=== PATIENT | female | born 2000 | race Caucasian/White ===

== ENCOUNTER 2018-02-05 23:00 | Emergency (ER) | payer SELFPAY ==
--- NOTE | 2018-02-06 01:06 | ER Document Report ---
ED General - General Chief Complaint: Abdominal Pain Stated Complaint: ABDOMINAL PAIN Time Seen by Provider: 02/06/18 01:04 Notes: 17-year-old female currently with positive test presenting with crampy lower abdominal pain and brown discharge for 2 days gradual onset, worsening, nausea but no vomiting. No back pain or urinary symptoms. History of chlamydia. TRAVEL OUTSIDE OF THE [place] IN LAST 30 DAYS: No - Related Data Allergies/Adverse Reactions: erythromycin base [Erythromycin Base] Allergy (Mild, Verified 02/06/18 01:41) Hives Past Medical History - Social History Smoking Status: Never Smoker Family History: None Endocrine Medical History: Denies: Hx Diabetes Mellitus Type 1 Psychiatric Medical History: Reports: Hx Depression - Immunizations Immunizations up to date: Yes Hx Diphtheria, Pertussis, Tetanus Vaccination: Yes Physical Exam - Vital signs Vitals: Temp Pulse BP Pulse Ox 98.2 F 80 139/75 H 99 02/05/18 23:27 02/05/18 23:27 02/05/18 23:27 02/05/18 23:27 Course - Re-evaluation Re-evalutation: 02/06/18 03:43 Patient presents with vague lower abdominal cramping and a positive test. Her exam is reassuring and her vitals are normal. Differential includes UTI, spontaneous , normal or ectopic. Also ovarian cyst. Patient had a urine which was normal including positive leukocyte esterase but no white cells and slight contamination, she is not , her labs are normal. Do not think she needs imaging at this time given that her pain is mild. I did test her for Chlamydia gonorrhea both of which are negative. Patient is already tolerating p.o. and asked her to follow-up with her primary care doctor as well as take a repeat test. I have discussed with the patient there likely diagnosis, aftercare plan, follow-up plans and my usual and customary return precautions. They verbalized understanding of this. - Vital Signs Vital signs: Temp Pulse Resp BP Pulse Ox 98.2 F 80 139/75 H 99 02/05/18 23:27 02/05/18 23:27 02/05/18 23:27 02/05/18 23:27 - Laboratory Result Diagrams: 02/06/18 01:36 02/06/18 01:36 Laboratory results interpreted by me: 02/06/18 02/06/18 01:35 01:36 Chloride 108 H Ur Leukocyte Esterase TRACE H Urine Ascorbic Acid 40 H Discharge - Discharge Clinical Impression: Abdominal cramping Condition: Good Disposition: HOME, SELF-CARE Instructions: Abdominal Pain ([facility]) Additional Instructions: Your test in the emergency room as well as your tests for sexually transmitted diseases were normal. The remainder of your blood testing was normal. Please take ibuprofen for your cramping and follow-up with your primary care doctor. I would like you to repeat a test in 2 or 3 days. If you become faint and dizzy or have worse pain or vomiting please return to the emergency room.
[2018-02-06 01:51] LABS: ABSOLUTE BASOPHILS # (AUTO) 0.1 10^3/uL (0.0-0.2); ABSOLUTE EOSINOPHILS # (AUTO) 0.1 10^3/uL (0.0-0.6); ABSOLUTE LYMPHOCYTES (AUTO) 3.4 10^3/uL (0.5-4.7); ABSOLUTE MONOCYTES (AUTO) 0.5 10^3/uL (0.1-1.4); ABSOLUTE NEUT (AUTO) 6.3 10^3/uL (1.7-8.2); BASOPHILS % (AUTO) 0.7 % (0-2); EOSINOPHILS % (AUTO) 0.8 % (0-6); HEMATOCRIT 38.2 % (36.0-47.0); HEMOGLOBIN 12.8 g/dL (12.0-15.5); LYMPHOCYTES % (AUTO) 32.8 % (13-45); MEAN CORPUSCULAR HEMOGLOBIN 29.7 pg (27.0-33.4); MEAN CORPUSCULAR HGB CONC 33.4 g/dL (32.0-36.0); MEAN CORPUSCULAR VOLUME 89 fl (80-97); PLATELET COUNT 256 10^3/uL (150-450); SEGMENTED NEUTROPHILS % (AUTO) 60.7 % (42-78); TOTAL CELLS COUNTED % (AUTO) 100 %; WHITE BLOOD COUNT 10.3 10^3/uL (4.0-10.5)
[2018-02-06 01:59] LABS: AMORPHOUS SEDIMENT,URINE TRACE /HPF; APPEARANCE,URINE SLIGHTLY-CLOUDY; BILIRUBIN,URINE NEGATIVE (NEGATIVE); COLOR,URINE YELLOW; GLUCOSE, URINE NEGATIVE (NEGATIVE); KETONES,URINE NEGATIVE (NEGATIVE); LEUKOCYTE ESTERASE,URINE TRACE (NEGATIVE); NITRITE,URINE NEGATIVE (NEGATIVE); PROTEIN,URINE NEGATIVE (NEGATIVE); URINE SPECIFIC GRAVITY 1.026; UROBILINOGEN,URINE NEGATIVE mg/dL (<2.0)
[2018-02-06 02:19] LABS: ANION GAP 9 (5-19); BLOOD UREA NITROGEN 9 mg/dL (7-20); CALCIUM 9.1 mg/dL (8.4-10.2); CARBON DIOXIDE 24 mmol/L (22-30); CHLORIDE 108 mmol/L (98-107); GLUCOSE 101 mg/dL (75-110); POTASSIUM 4.4 mmol/L (3.6-5.0); SODIUM 141.2 mmol/L (137-145)
[2018-02-06 03:22] LABS: CHLAM PCR NOT DETECTED (NOT DETECT); GON PCR NOT DETECTED (NOT DETECT)
[2018-02-06 03:58] VITALS: BP 115/73
== END 2018-02-06 03:58 | disposition home or self-care (01) ==
LOC: ER 23:00
DX: R10.30 Lower abdominal pain, unspecified (principal); E10.9 Type 1 diabetes mellitus without complications
CPT/HCPCS: 36415; 80048; 81001; 81025; 85025; 87491; 87591; 99284

== ENCOUNTER 2018-05-12 21:41 | Emergency (ER) | payer SELFPAY ==
[2018-05-12] MEDS ORDERED: METOCLOPRAMIDE HCL INJ/PF 10 MG/2 ML SDV IV ONE (23:33)
[2018-05-12] MEDS ORDERED: DIPHENHYDRAMINE HCL 50 MG/ML VIAL IV ONE (23:33)
[2018-05-12] MEDS ORDERED: NORMAL SALINE 1000 ML 1,000 ML IV ONE (23:34)
--- NOTE | 2018-05-13 01:02 | ER Document Report ---
ED General - General Chief Complaint: Dizziness Stated Complaint: DIZZY, WEAKNESS Time Seen by Provider: 05/12/18 23:33 Notes: Patient is a 17 year old at 17 weeks who presents with multiple complaints. The patient complains of headache, dizziness, weakness, fatigue, body pain, and confusion. Symptoms started 1 week ago and have been persistent since that time. Nothing improves or worsens her symptoms. She denies recorded fever, vaginal bleeding or vaginal discharge or dysuria. 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 She is not taking vitamins and continues to smoke. Nothing is new or different about her symptoms that prompted a visit to the emergency department tonight. TRAVEL OUTSIDE OF THE [place] IN LAST 30 DAYS: No - Related Data Allergies/Adverse Reactions: No Known Allergies Allergy (Unverified 05/12/18 21:44) Past Medical History - General Information source: Patient - Social History Smoking Status: Current Every Day Smoker Chew tobacco use (# tins/day): No Frequency of alcohol use: None Drug Abuse: None Lives with: Spouse/Significant other Family History: Reviewed & Not Pertinent Patient has suicidal ideation: No Patient has homicidal ideation: No Endocrine Medical History: Denies: Hx Diabetes Mellitus Type 1 Renal/ Medical History: Denies: Hx Peritoneal Dialysis Psychiatric Medical History: Reports: Hx Depression Past Surgical History: Reports: Hx Section - 2017 - Immunizations Immunizations up to date: Yes Hx Diphtheria, Pertussis, Tetanus Vaccination: Yes Review of Systems - Review of Systems Notes: Constitutional: Negative for fever. Positive for generalized weakness HENT: Negative for sore throat. Eyes: Negative for visual changes. Cardiovascular: Negative for chest pain. Respiratory: Negative for shortness of breath. Gastrointestinal: Negative for abdominal pain, vomiting or diarrhea. Genitourinary: Negative for dysuria. Musculoskeletal: Negative for back pain. Skin: Negative for rash. Neurological: Positive for headache 10 point ROS negative except as marked above and in HPI. Physical Exam - Vital signs Vitals: Temp Pulse Resp BP Pulse Ox 98.7 F 89 18 115/63 98 05/12/18 21:47 05/12/18 21:47 05/12/18 21:47 05/12/18 21:47 05/12/18 21:47 Interpretation: Normal Notes: PHYSICAL EXAMINATION: GENERAL: Well-appearing, well-nourished and in no acute distress. HEAD: Atraumatic, normocephalic. EYES: Pupils equal round and reactive to light, extraocular movements intact, sclera anicteric, conjunctiva are normal. ENT: nares patent, oropharynx clear without exudates. Moist mucous membranes. NECK: Normal range of motion, supple without lymphadenopathy LUNGS: Breath sounds clear to auscultation bilaterally and equal. No wheezes rales or rhonchi. HEART: Regular rate and rhythm without murmurs ABDOMEN: Soft, gravid uterus, nontender, normoactive bowel sounds. No guarding , no rebound. No masses appreciated. EXTREMITIES: Normal range of motion, no pitting or edema. No cyanosis. NEUROLOGICAL: No focal neurological deficits. Moves all extremities spontaneously and on command. PSYCH: Normal mood, normal affect. SKIN: Warm, Dry, normal turgor, no rashes or lesions noted. Course - Re-evaluation Re-evalutation: 05/13/18 00:57 Patient presents with multiple vague complaints that did not appear to be concerning for any acute life-threatening pathology. Vitals are within normal limits at triage and at time of discharge. Physical examination is unremarkable. Patient has tolerated oral intake without difficulty. Patient was not noted to be in distress at any point during their ER visit. At this time, based on the reassuring evaluation, I do not suspect an acute MD, pulmonary embolus, aortic dissection, acute intra-abdominal pathology, stroke, or sepsis. Patient has no vaginal bleeding or discharge to suggest a related pathology and has no abdominal pain. heart tones within normal limits. Will discharge with return precautions and follow-up recommendations. Verbal discharge instructions given a the bedside and opportunity for questions given. Medication warnings reviewed. Patient is in agreement with this plan and has verbalized understanding of return precautions and the need for primary care follow-up in the next 24-72 hours. - Vital Signs Vital signs: Temp Pulse Resp BP Pulse Ox 98.7 F 89 18 115/63 98 05/12/18 21:47 05/12/18 21:47 05/12/18 21:47 05/12/18 21:47 05/12/18 21:47 - Laboratory Result Diagrams: 05/13/18 00:46 05/13/18 00:46 Laboratory results interpreted by me: 05/13/18 05/13/18 05/13/18 00:37 00:46 00:46 RBC 3.33 L Hgb 10.5 L Hct 29.9 L RDW 14.6 H Potassium 3.5 L BUN 6 L Creatinine 0.42 L Alkaline Phosphatase 36 L Total Protein 5.8 L Albumin 2.9 L Urine Urobilinogen 2.0 H Ur Leukocyte Esterase MODERATE H Discharge - Discharge Clinical Impression: Multiple complaints, Generalized weakness, Second trimester Headache Qualifiers: Headache type: unspecified Headache chronicity pattern: acute headache Intractability: not intractable Qualified Code(s): R51 - Headache Condition: Good Disposition: HOME, SELF-CARE Additional Instructions: Please return to the emergency room immediately if you experience any concerning symptoms including high fevers, severe headache, chest pain, difficulty breathing, abdominal pain, slurred speech, numbness or weakness in your arms or legs, or any other symptom that concerns you. Your labs are normal today. Please establish care for your . If you drink alcohol stop. If you smoke stop. Do not use any illicit drugs while . You should be taking vitamins. Any of the generic [id number] variations will be fine. Referrals: SULY MCINTOSH MD [ACTIVE STAFF] - Follow up as needed
[2018-05-13 01:04] LABS: HEMATOCRIT 29.9 % (36.0-47.0); HEMOGLOBIN 10.5 g/dL (12.0-15.5); MEAN CORPUSCULAR HEMOGLOBIN 31.6 pg (27.0-33.4); MEAN CORPUSCULAR HGB CONC 35.1 g/dL (32.0-36.0); MEAN CORPUSCULAR VOLUME 90 fl (80-97); PLATELET COUNT 183 10^3/uL (150-450); RED BLOOD COUNT 3.33 10^6/uL (3.72-5.28); RED CELL DISTRIBUTION WIDTH 14.6 % (11.5-14.0); WHITE BLOOD COUNT 7.4 10^3/uL (4.0-10.5)
[2018-05-13 01:04] LABS: APPEARANCE,URINE SLIGHTLY-CLOUDY; BILIRUBIN,URINE NEGATIVE (NEGATIVE); COLOR,URINE YELLOW; GLUCOSE, URINE NEGATIVE (NEGATIVE); KETONES,URINE NEGATIVE (NEGATIVE); LEUKOCYTE ESTERASE,URINE MODERATE (NEGATIVE); NITRITE,URINE NEGATIVE (NEGATIVE); PROTEIN,URINE NEGATIVE (NEGATIVE); URINE SPECIFIC GRAVITY 1.018
[2018-05-13 01:13] LABS: ALANINE AMINOTRANSFERASE 14 U/L (5-35); ALBUMIN 2.9 g/dL (3.7-5.6); ALKALINE PHOSPHATASE 36 U/L (50-135); ANION GAP 11 (5-19); ASPARTATE AMINO TRANSFERASE 14 U/L (5-30); BILIRUBIN,DIRECT 0.2 mg/dL (0.0-0.4); BILIRUBIN,TOTAL 0.2 mg/dL (0.2-1.3); BLOOD UREA NITROGEN 6 mg/dL (7-20); CALCIUM 8.7 mg/dL (8.4-10.2); CARBON DIOXIDE 23 mmol/L (22-30); CHLORIDE 106 mmol/L (98-107); GLUCOSE 81 mg/dL (75-110); POTASSIUM 3.5 mmol/L (3.6-5.0); SODIUM 140.3 mmol/L (137-145); TOTAL PROTEIN 5.8 g/dL (6.3-8.2)
[2018-05-13 02:58] VITALS: BP 114/65
== END 2018-05-13 02:58 | disposition home or self-care (01) ==
LOC: ER 21:41
DX: O26.892 Other specified pregnancy related conditions, second trimester (principal); R51 Headache; R53.1 Weakness; O99.332 Smoking (tobacco) complicating pregnancy, second trimester; R42 Dizziness and giddiness; M79.1 Myalgia; R41.0 Disorientation, unspecified; Z3A.19 19 weeks gestation of pregnancy
CPT/HCPCS: 99284; 96361; 96374; 96375; 36415; 85027; 80053; 81001; J1200; J2765; J7030

== ENCOUNTER 2018-05-29 09:59 | Emergency (ER) | payer MEDICAID ==
[2018-05-29] MEDS ORDERED: ACETAMINOPHEN 325 MG TABLET PO ONE (10:15)
--- NOTE | 2018-05-29 10:19 | ER Document Report ---
ED Medical Screen (RME) - General Chief Complaint: Abdominal Pain Stated Complaint: STOMACH CRAMPING Time Seen by Provider: 05/29/18 10:13 Notes: History of complain:( obtained from----patient) 17 years old female who is 16 weeks and presents today with pelvic cramps and pelvic pain, lower back pain for the last couple of days. No vagina bleeding but mucous plug. When she was 8 week she had an episode of vaginal bleeding. Denies any fever chills or other constitutional symptoms. Been 6 times, 2 miscarriages, 5 children, one twins. TRAVEL OUTSIDE OF THE [place] IN LAST 30 DAYS: No - Related Data Allergies/Adverse Reactions: No Known Allergies Allergy (Verified 05/29/18 10:00) Past Medical History - Social History Chew tobacco use (# tins/day): No Frequency of alcohol use: None Drug Abuse: None Endocrine Medical History: Denies: Hx Diabetes Mellitus Type 1 Renal/ Medical History: Denies: Hx Peritoneal Dialysis Psychiatric Medical History: Reports: Hx Depression Past Surgical History: Reports: Hx Section - 2017 - Immunizations Immunizations up to date: Yes Hx Diphtheria, Pertussis, Tetanus Vaccination: Yes Physical Exam - Vital signs Vitals: Temp Pulse Resp BP Pulse Ox 97.8 F 82 14 115/61 99 05/29/18 10:04 05/29/18 10:04 05/29/18 10:04 05/29/18 10:04 05/29/18 10:04 Course - Vital Signs Vital signs: Temp Pulse Resp BP Pulse Ox 97.8 F 82 14 115/61 99 05/29/18 10:04 05/29/18 10:04 05/29/18 10:04 05/29/18 10:04 05/29/18 10:04
--- NOTE | 2018-05-29 10:19 | ER Document Report ---
ED GI/ - General Chief Complaint: Abdominal Pain Stated Complaint: STOMACH CRAMPING Time Seen by Provider: 05/29/18 10:13 Notes: Chief complaint: Abdominal cramps History of complain:( obtained from----patient) 17 years old female who is 16 weeks and presents today with pelvic cramps and pelvic pain, lower back pain for the last couple of days. No vagina bleeding but mucous plug. When she was 8 week she had an episode of vaginal bleeding. Denies any fever chills or other constitutional symptoms. Been 6 times, 2 miscarriages, 5 children, one twins. Onset: As above Duration: As above Severity: Mild to moderate Quality: Crampy Context: Exacerbating factor and relieving factors: None REVIEW OF SYSTEMS: CONSTITUTIONAL : Denies fever, chills, or sweats. Denies recent illness. EENT: Denies eye, ear, throat, or mouth pain or symptoms. Denies nasal or sinus congestion or discharge. Denies throat, tongue, or mouth swelling or difficulty swallowing. CARDIOVASCULAR: Denies chest pain. Denies palpitations or racing or irregular heart beat. Denies ankle edema. RESPIRATORY: Denies cough, cold, or chest congestion. Denies shortness of breath, difficulty breathing, or wheezing. GASTROINTESTINAL: Denies distention. Denies nausea, vomiting, or diarrhea. Denies blood in vomitus, stools, or per rectum. Denies black, tarry stools. Denies constipation. GENITOURINARY: Denies difficulty urinating, painful urination, burning, frequency, blood in urine, or discharge. FEMALE GENITOURINARY: Denies vaginal bleeding, heavy or abnormal periods, irregular periods. Denies vaginal discharge or odor. MUSCULOSKELETAL: Denies back or neck pain or stiffness. Denies joint pain or swelling. SKIN: Denies rash, lesions or sores. HEMATOLOGIC : Denies easy bruising or bleeding. LYMPHATIC: Denies swollen, enlarged glands. NEUROLOGICAL: Denies confusion or altered mental status. Denies passing out or loss of consciousness. Denies dizziness or lightheadedness. Denies headache. Denies weakness or paralysis or loss of use of either side. Denies problems with gait or speech. Denies sensory loss, numbness, or tingling. Denies seizures. PSYCHIATRIC: Denies anxiety or stress. Denies depression, suicidal ideation, or homicidal ideation. ALL OTHER SYSTEMS REVIEWED AND NEGATIVE. PHYSICAL EXAMINATION: GENERAL: Well-appearing, well-nourished and in no acute distress. Obesity HEAD: Atraumatic, normocephalic. EYES: Pupils equal round and reactive to light, extraocular movements intact, conjunctiva are normal. ENT: Nares patent, oropharynx clear without exudates. Moist mucous membranes. NECK: Normal range of motion, supple without lymphadenopathy LUNGS: Breath sounds clear to auscultation bilaterally and equal. No wheezes rales or rhonchi. HEART: Regular rate and rhythm without murmurs ABDOMEN: Soft, nontender, nondistended abdomen. No guarding, no rebound. No masses appreciated. Examination of genitals-deferred Musculoskeletal: Normal range of motion, no pitting or edema. No cyanosis. NEUROLOGICAL: Cranial nerves grossly intact. Normal speech, normal gait. Normal sensory, motor exams PSYCH: Normal mood, normal affect. SKIN: Warm, Dry, normal turgor, no rashes or lesions noted. Dictation was performed using revoPT voice recognition software TRAVEL OUTSIDE OF THE [place] IN LAST 30 DAYS: No - Related Data Allergies/Adverse Reactions: No Known Allergies Allergy (Verified 05/29/18 10:00) Past Medical History - Social History Smoking Status: Current Every Day Smoker Chew tobacco use (# tins/day): No Frequency of alcohol use: None Drug Abuse: None Family History: Reviewed & Not Pertinent Patient has suicidal ideation: No Patient has homicidal ideation: No Endocrine Medical History: Denies: Hx Diabetes Mellitus Type 1 Renal/ Medical History: Denies: Hx Peritoneal Dialysis Psychiatric Medical History: Reports: Hx Depression Past Surgical History: Reports: Hx Section - 2017 - Immunizations Immunizations up to date: Yes Hx Diphtheria, Pertussis, Tetanus Vaccination: Yes Physical Exam - Vital signs Vitals: Temp Pulse Resp BP Pulse Ox 97.8 F 82 14 115/61 99 05/29/18 10:05/29/18 10:05/29/18 10:05/29/18 10:05/29/18 10:04 Course - Vital Signs Vital signs: Temp Pulse Resp BP Pulse Ox 97.8 F 82 14 115/61 99 05/29/18 10:05/29/18 10:05/29/18 10:05/29/18 10:04 05/29/18 10:04
--- NOTE | 2018-05-29 10:40 | ER Document Report ---
ED General - General Chief Complaint: Abdominal Pain Stated Complaint: STOMACH CRAMPING Time Seen by Provider: 05/29/18 10:13 TRAVEL OUTSIDE OF THE [place] IN LAST 30 DAYS: No - HPI Patient complains to provider of: cramping, stomach and back pain Notes: 17-year-old female presents with 8/10 cramping abdominal pain without radiation. Nothing is made the pain better or worse. Started this morning. Patient states it is reminiscent of her early labor she suffered with with her twin . She delivered the twins 34 weeks but went into early labor at 30 weeks. Was hospitalized. Denies fever, chills, vaginal discharge or bleeding. Denies all physical complaints. - Related Data Allergies/Adverse Reactions: No Known Allergies Allergy (Verified 05/29/18 10:00) Past Medical History - Social History Smoking Status: Current Every Day Smoker Chew tobacco use (# tins/day): No Frequency of alcohol use: None Drug Abuse: None Family History: Reviewed & Not Pertinent Patient has suicidal ideation: No Patient has homicidal ideation: No Endocrine Medical History: Denies: Hx Diabetes Mellitus Type 1 Renal/ Medical History: Denies: Hx Peritoneal Dialysis Psychiatric Medical History: Reports: Hx Depression Past Surgical History: Reports: Hx Section - 2017 - Immunizations Immunizations up to date: Yes Hx Diphtheria, Pertussis, Tetanus Vaccination: Yes Review of Systems - Review of Systems Notes: REVIEW OF SYSTEMS: CONSTITUTIONAL: -fevers, -chills EENT: -eye pain, -difficulty swallowing, -nasal congestion CARDIOVASCULAR: -chest pain, -syncope. RESPIRATORY: -cough, -SOB GASTROINTESTINAL: + abdominal pain, -nausea, -vomiting, -diarrhea GENITOURINARY: -dysuria, -hematuria MUSCULOSKELETAL: -back pain, -neck pain SKIN: -rash or skin lesions. HEMATOLOGIC: -easy bruising or bleeding. LYMPHATIC: -swollen, enlarged glands. NEUROLOGICAL: -altered mental status or loss of consciousness, -headache, - neurologic symptoms PSYCHIATRIC: -anxiety, -depression. ALL OTHER SYSTEMS REVIEWED AND NEGATIVE. Physical Exam - Vital signs Vitals: Temp Pulse Resp BP Pulse Ox 97.8 F 82 14 115/61 99 05/29/18 10:04 05/29/18 10:04 05/29/18 10:04 05/29/18 10:04 05/29/18 10:04 - Notes Notes: PHYSICAL EXAMINATION: GENERAL: Well-appearing, well-nourished and in no acute distress. HEAD: Atraumatic, normocephalic. EYES: Pupils equal round and reactive to light, extraocular movements intact, sclera anicteric, conjunctiva are normal. ENT: nares patent, oropharynx clear without exudates. Moist mucous membranes. NECK: Normal range of motion, supple without lymphadenopathy LUNGS: Breath sounds clear to auscultation bilaterally and equal. No wheezes rales or rhonchi. HEART: Regular rate and rhythm without murmurs ABDOMEN: Soft, nontender, normoactive bowel sounds. No guarding, no rebound. No masses appreciated. EXTREMITIES: Normal range of motion, no pitting or edema. No cyanosis. NEUROLOGICAL: Cranial nerves grossly intact. Normal speech, normal gait. Normal sensory and motor exams. PSYCH: Normal mood, normal affect. SKIN: Warm, Dry, normal turgor, no rashes or lesions noted. Course - Re-evaluation Re-evalutation: 05/29/18 10:39 17-year-old female presents having abdominal pain denies nausea vomiting change in bowel habits. Will order labs ultrasound as well consult OB/ INSTRUMENTAL TEACHER. She is ultrasound measures fetus at 18.5 weeks, cervix greater than 3.5 cm. Discussed case with gynecology. They recommend outpatient follow-up tomorrow. Given her cervix length in early . It is nonviable fetus at this time she has no symptoms of bleeding pain control with Tylenol. Will be discharged home follow-up tomorrow RESIDENTIAL CARE OFFICER. 05/29/18 12:56 - Vital Signs Vital signs: Temp Pulse Resp BP Pulse Ox 97.8 F 82 14 115/61 99 05/29/18 10:04 05/29/18 10:04 05/29/18 10:04 05/29/18 10:04 05/29/18 10:04 - Laboratory Result Diagrams: 05/29/18 10:20 Laboratory results interpreted by me: 05/29/18 05/29/18 05/29/18 10:19 10:20 10:20 Hgb 11.8 L Hct 34.6 L RDW 14.2 H Beta HCG, Quant 68982.00 H Urine Urobilinogen 2.0 H Ur Leukocyte Esterase TRACE H Discharge - Discharge Clinical Impression: Abdominal pain Qualifiers: Abdominal location: generalized Qualified Code(s): R10.84 - Generalized abdominal pain Condition: Stable Disposition: HOME, SELF-CARE Instructions: Abdominal Pain ([facility]) Additional Instructions: See your RESIDENTIAL CARE OFFICER.
[2018-05-29 10:56] LABS: ABSOLUTE EOSINOPHILS # (AUTO) 0.1 10^3/uL (0.0-0.6); ABSOLUTE LYMPHOCYTES (AUTO) 2.7 10^3/uL (0.5-4.7); ABSOLUTE MONOCYTES (AUTO) 0.3 10^3/uL (0.1-1.4); ABSOLUTE NEUT (AUTO) 6.8 10^3/uL (1.7-8.2); BASOPHILS % (AUTO) 0.2 % (0-2); EOSINOPHILS % (AUTO) 1.4 % (0-6); HEMATOCRIT 34.6 % (36.0-47.0); HEMOGLOBIN 11.8 g/dL (12.0-15.5); LYMPHOCYTES % (AUTO) 26.8 % (13-45); MEAN CORPUSCULAR HEMOGLOBIN 30.8 pg (27.0-33.4); MEAN CORPUSCULAR VOLUME 91 fl (80-97); MONOCYTES % (AUTO) 3.4 % (3-13); PLATELET COUNT 240 10^3/uL (150-450); RED BLOOD COUNT 3.82 10^6/uL (3.72-5.28); RED CELL DISTRIBUTION WIDTH 14.2 % (11.5-14.0); SEGMENTED NEUTROPHILS % (AUTO) 68.2 % (42-78); TOTAL CELLS COUNTED % (AUTO) 100 %
[2018-05-29 11:04] LABS: APPEARANCE,URINE SLIGHTLY-CLOUDY; BILIRUBIN,URINE NEGATIVE (NEGATIVE); COLOR,URINE YELLOW; GLUCOSE, URINE NEGATIVE (NEGATIVE); KETONES,URINE NEGATIVE (NEGATIVE); LEUKOCYTE ESTERASE,URINE TRACE (NEGATIVE); NITRITE,URINE NEGATIVE (NEGATIVE); PROTEIN,URINE NEGATIVE (NEGATIVE); URINE SPECIFIC GRAVITY 1.025
--- NOTE | 2018-05-29 12:15 | RADIOLOGY REPORT (SQ) ---
EXAM DESCRIPTION: U/S OB 14+ TA/1 GEST W/DOPPLER COMPLETED DATE/TIME: 05/29/2018 12:06 pm REASON FOR STUDY: Abdominal pain and cramps COMPARISON: None. TECHNIQUE: Static and Dynamic grayscale imaging performed of gravid uterus using transabdominal appr oach. Additional selected color Doppler and spectral images recorded. All stored on PACS. LIMITATIONS: Positioning. FINDINGS: EGA: 18 weeks 5 days AAKASH: 03/25/2018 EFW: 267 grams PERCENTILE: Not applicable. Fetus less than or equal to 20 weeks gestation. RODRIGUE: 3.4 PLACENTA: Posterior GRADE: I PRESENTATION: Cephalic. ANATOMY: HEART RATE: 150 beats per minute. FOUR CHAMBER HEART: Not visualized. THREE VESSEL CORD: Yes. CORD INSERTION: Visualized. KIDNEYS AND BLADDER: Visualized. Appear normal. STOMACH: Visualized. Appears normal. SPINE: Normal as visualized. BRAIN AND LATERAL VENTRICLES: Visualized. Appear normal. OTHER: No other significant finding. MATERNAL ADNEXA: Maternal ovaries not visualized. CERVICAL LENGTH: 3.5 cm. Closed. OTHER: No other significant finding. IMPRESSION: LIVING INTRAUTERINE . ESTIMATED GESTATIONAL AGE 18 weeks 5 days. NO VISUALIZED ANOMALIES. Trimester of : Second trimester - 13 weeks 1 day to 27 weeks 6 days. TECHNICAL DOCUMENTATION: JOB ID: [id number] [employer]- All Rights Reserved Reading location - IP/workstation name: [email or web address]
[2018-05-29 13:30] VITALS: BP 107/64
== END 2018-05-29 13:30 | disposition home or self-care (01) ==
LOC: ER 09:59
DX: O26.892 Other specified pregnancy related conditions, second trimester (principal); R10.84 Generalized abdominal pain; O99.332 Smoking (tobacco) complicating pregnancy, second trimester; Z3A.18 18 weeks gestation of pregnancy
CPT/HCPCS: 36415; 76805; 81001; 84702; 85025; 93976; 99284

== ENCOUNTER 2018-08-07 02:48 | Outpatient (CLI) | payer MEDICAID ==
[2018-08-07 04:02] LABS: APPEARANCE,URINE CLEAR; BILIRUBIN,URINE NEGATIVE (NEGATIVE); COLOR,URINE STRAW; GLUCOSE, URINE NEGATIVE (NEGATIVE); KETONES,URINE 20 mg/dL (NEGATIVE); LEUKOCYTE ESTERASE,URINE SMALL (NEGATIVE); NITRITE,URINE NEGATIVE (NEGATIVE); PROTEIN,URINE NEGATIVE (NEGATIVE); URINE SPECIFIC GRAVITY 1.003; UROBILINOGEN,URINE NEGATIVE mg/dL (<2.0)
[2018-08-07 04:11] LABS: URINE AMPHETAMINES SCREEN NEGATIVE; URINE BARBITURATES SCREEN NEGATIVE; URINE BENZODIAZEPINES SCREEN NEGATIVE; URINE COCAINE SCREEN NEGATIVE; URINE MARIJUANA (THC) SCREEN NEGATIVE; URINE METHADONE SCREEN NEGATIVE; URINE PHENCYCLIDINE SCREEN NEGATIVE
[2018-08-07] MEDS ORDERED: HYDROXYZINE PAMOATE 50 MG CAPSULE ONE (04:38)
[2018-08-07] MEDS ORDERED: HYDROXYZINE PAMOATE 50 MG CAPSULE PO ONE (05:00)
== END 2018-08-07 05:08 | disposition home or self-care (01) ==
LOC: LC 02:48
PROVIDERS: ATTEND Obstetrics & Gynecology
PROC: 4A1HXCZ Monitoring of Products of Conception, Cardiac Rate, External Approach (ICD-10-PCS; principal; 2018-08-07)
DX: O47.03 False labor before 37 completed weeks of gestation, third trimester (principal); Z3A.29 29 weeks gestation of pregnancy
CPT/HCPCS: 59899; 81001; 80307; J3490

== ENCOUNTER 2018-08-28 13:47 | Outpatient (CLI) | payer MEDICAID ==
[2018-08-28 14:49] LABS: APPEARANCE,URINE SLIGHTLY-CLOUDY; BILIRUBIN,URINE NEGATIVE (NEGATIVE); COLOR,URINE YELLOW; GLUCOSE, URINE NEGATIVE (NEGATIVE); KETONES,URINE NEGATIVE (NEGATIVE); LEUKOCYTE ESTERASE,URINE TRACE (NEGATIVE); NITRITE,URINE NEGATIVE (NEGATIVE); PROTEIN,URINE 30 mg/dL (NEGATIVE); URINE SPECIFIC GRAVITY 1.026
[2018-08-28] MEDS ORDERED: HYDROXYZINE PAMOATE 50 MG CAPSULE ONE ×2 (14:56→16:30)
[2018-08-28] MEDS ORDERED: HYDROXYZINE PAMOATE 50 MG CAPSULE PO ONE ×2 (14:56→17:30)
[2018-08-28 15:03] LABS: URINE AMPHETAMINES SCREEN NEGATIVE; URINE BARBITURATES SCREEN NEGATIVE; URINE BENZODIAZEPINES SCREEN NEGATIVE; URINE COCAINE SCREEN NEGATIVE; URINE METHADONE SCREEN NEGATIVE; URINE PHENCYCLIDINE SCREEN NEGATIVE
[2018-08-28 15:10] LABS: URINE MARIJUANA (THC) SCREEN UNCONFIRMED POSITIVE
--- NOTE | 2018-08-28 18:53 | RADIOLOGY REPORT (SQ) ---
EXAM DESCRIPTION: U/S OB LIMITED COMPLETED DATE/TIME: 08/28/2018 6:35 pm REASON FOR STUDY: cervical length, pre term labor COMPARISON: None. TECHNIQUE: Limited transabdominal grayscale ultrasound for evaluation of specific requested obstetri mariah parameters. LIMITATIONS: None. FINDINGS: CERVICAL LENGTH: 2.4 cm Closed. FHR: 144 beats per minute. OTHER: No other significant findings. IMPRESSION: LIMITED OBSTETRICAL ULTRASOUND WITH MEASURED PARAMETERS DELINEATED ABOVE. TECHNICAL DOCUMENTATION: JOB ID: [id number] [email or web address]- All Rights Reserved Reading location - IP/workstation name: [email or web address]
[2018-08-28] MEDS ORDERED: TERBUTALINE SULFATE INJ/PF 1 MG/1 ML SDV SUBCUT ONE (18:55)
[2018-08-28] MEDS ORDERED: TERBUTALINE SULFATE INJ/PF 1 MG/1 ML SDV ONE (18:55)
[2018-08-28] MEDS ORDERED: BETAMET ACET/BETAMET NA INJ 6 MG/1 ML ONE (18:56)
--- NOTE | 2018-08-28 19:19 | Non Stress Test Report ---
Non Stress Test Datetime Report Generated by CPN: 08/28/2018 19:18 DEMOGRAPHIC EGA NST: 32.2 EGA NST: 29.2 INDICATION Indication for Study: Ordered by Provider Indication for Study: Ordered by Provider VITAL SIGNS Temperature - NST: 97.6 Pulse - NST: 68 RESP - NST: 16 NBPSYS NST: 82 NBPDIA NST: 44 URINE RESULTS Urine Protein, NST: Negative Urine Ketones - NST: Positive Urine Glucose - NST: Negative Urine Blood - NST: Negative MONITORING Monitor Explained: Monitor Explained; Test Explained; Patient Verbalized Understanding Monitor Explained: Monitor Explained; Test Explained; Patient Verbalized Understanding Time on Monitor: 08/28/2018 14:13 Time on Monitor: 08/07/2018 03:15 Time off Monitor: 08/28/2018 18:07 Time off Monitor: 08/07/2018 05:00 NST Duration: 234 NST Duration: 105 NST INTERVENTIONS NST Interventions: PO Hydration; Reposition Patient NST Interventions: PO Hydration Physician Notified NST: Mia, PEGGY Physician Notified NST: Dr. Saldivar BABY A: [id number] BABY A Movement : Present Movement : Present Contraction Frequency : 2-11 Contraction Frequency : None FHR Baseline : 140 FHR Baseline : 135 Accelerations : 15X15 Accelerations : 15X15 Decelerations : None Decelerations : None Variability : Moderate 6-25bpm Variability : Moderate 6-25bpm NST Review: Meets Criteria for Reactive NST NST Review and Verified By : JACKIE HAMPTON Results: Reactive NST Results: Reactive NST REPORT Report Trigger: Send Report
[2018-08-28] MEDS ORDERED: BETAMET ACET/BETAMET NA INJ 6 MG/1 ML IM ONE (19:45)
== END 2018-08-28 19:29 | disposition home or self-care (01) ==
LOC: LC 13:47
PROVIDERS: ATTEND Obstetrics & Gynecology
PROC: 4A1HXCZ Monitoring of Products of Conception, Cardiac Rate, External Approach (ICD-10-PCS; principal; 2018-08-28)
DX: O99.283 Endocrine, nutritional and metabolic diseases complicating pregnancy, third trimester (principal); E86.0 Dehydration; O47.03 False labor before 37 completed weeks of gestation, third trimester; Z3A.32 32 weeks gestation of pregnancy
CPT/HCPCS: 59025; 96372; 81001; 80307; 84112; 76815; G0480 ×2; J3490; J0702; J3105; 80349

== ENCOUNTER 2018-08-29 19:15 | Outpatient (CLI) | payer MEDICAID ==
[2018-08-29] MEDS ORDERED: BETAMET ACET/BETAMET NA INJ 6 MG/1 ML IM ONE (19:24)
[2018-08-29] MEDS ORDERED: BETAMET ACET/BETAMET NA INJ 6 MG/1 ML ONE (19:26)
[2018-08-29] MEDS ORDERED: HYDROXYZINE PAMOATE 50 MG CAPSULE PO ONE (20:16)
[2018-08-29] MEDS ORDERED: HYDROXYZINE PAMOATE 50 MG CAPSULE ONE (20:17)
--- NOTE | 2018-08-29 21:39 | Non Stress Test Report ---
Non Stress Test Datetime Report Generated by CPN: 08/29/2018 21:38 DEMOGRAPHIC EGA NST: 32.3 INDICATION Indication for Study: Ordered by Provider Indication for Study (NST) Other: LC MONITORING Monitor Explained: Monitor Explained; Test Explained; Patient Verbalized Understanding Time on Monitor: 08/29/2018 19:40 Time off Monitor: 08/29/2018 21:19 NST Duration: 99 NST INTERVENTIONS NST Interventions: PO Hydration Physician Notified NST: Yariel BABY A: [id number] BABY A Movement : Present Contraction Frequency : 2-6 FHR Baseline : 140 Accelerations : 15X15 Decelerations : None Variability : Moderate 6-25bpm NST Review: Meets Criteria for Reactive NST NST Review and Verified By : Becka Torres RN NST Results: Reactive NST REPORT Report Trigger: Send Report
== END 2018-08-29 21:36 | disposition home or self-care (01) ==
LOC: LC 19:15
PROVIDERS: ATTEND Obstetrics & Gynecology
PROC: 4A1HXCZ Monitoring of Products of Conception, Cardiac Rate, External Approach (ICD-10-PCS; principal; 2018-08-29)
DX: O99.283 Endocrine, nutritional and metabolic diseases complicating pregnancy, third trimester (principal); E86.0 Dehydration; O47.03 False labor before 37 completed weeks of gestation, third trimester; Z3A.32 32 weeks gestation of pregnancy
CPT/HCPCS: 59025; 96372; J3490; J0702

== ENCOUNTER 2018-09-05 17:27 | Outpatient (CLI) | payer MEDICAID ==
[2018-09-05 18:31] LABS: APPEARANCE,URINE CLOUDY; BILIRUBIN,URINE NEGATIVE (NEGATIVE); COLOR,URINE AMBER; GLUCOSE, URINE NEGATIVE (NEGATIVE); KETONES,URINE 80 mg/dL (NEGATIVE); LEUKOCYTE ESTERASE,URINE TRACE (NEGATIVE); NITRITE,URINE NEGATIVE (NEGATIVE); PROTEIN,URINE 30 mg/dL (NEGATIVE); URINE SPECIFIC GRAVITY 1.027; UROBILINOGEN,URINE NEGATIVE mg/dL (<2.0)
[2018-09-05] MEDS ORDERED: HYDROXYZINE PAMOATE 50 MG CAPSULE ONE (18:31)
[2018-09-05] MEDS ORDERED: RINGERS SOLUTION,LACTATED 1,000 ML IV PRN (18:33)
[2018-09-05] MEDS ORDERED: RINGERS SOLUTION,LACTATED 1,000 ML IV ONE (18:33)
[2018-09-05 18:43] LABS: URINE AMPHETAMINES SCREEN NEGATIVE; URINE BARBITURATES SCREEN NEGATIVE; URINE BENZODIAZEPINES SCREEN NEGATIVE; URINE COCAINE SCREEN NEGATIVE; URINE METHADONE SCREEN NEGATIVE; URINE PHENCYCLIDINE SCREEN NEGATIVE
[2018-09-05] MEDS ORDERED: HYDROXYZINE PAMOATE 50 MG CAPSULE PO ONE (18:46)
[2018-09-05 18:53] LABS: URINE MARIJUANA (THC) SCREEN UNCONFIRMED POSITIVE
--- NOTE | 2018-09-05 20:23 | Non Stress Test Report ---
Non Stress Test Datetime Report Generated by CPN: 09/05/2018 20:22 DEMOGRAPHIC Test Number: 4 EGA NST: 33.3 INDICATION Indication for Study: Ordered by Provider MONITORING Monitor Explained: Monitor Explained; Test Explained; Patient Verbalized Understanding Time on Monitor: 09/05/2018 18:12 Time off Monitor: 09/05/2018 20:05 NST Duration: 113 NST INTERVENTIONS NST Interventions: PO Hydration; IV Fluids; Reposition Patient Physician Notified NST: Dr. Yariel BABY A: [id number] BABY A Movement : Present Contraction Frequency : irritability FHR Baseline : 145 Accelerations : 15X15 Decelerations : None Variability : Moderate 6-25bpm NST Review: Meets Criteria for Reactive NST NST Review and Verified By : MARCUS Reilly NSSesar Results: Reactive NST REPORT Report Trigger: Send Report
== END 2018-09-05 20:23 | disposition home or self-care (01) ==
LOC: LC 17:27
PROVIDERS: ATTEND Obstetrics & Gynecology
PROC: 4A1HXCZ Monitoring of Products of Conception, Cardiac Rate, External Approach (ICD-10-PCS; principal; 2018-09-05)
DX: O36.8130 Decreased fetal movements, third trimester, not applicable or unspecified (principal); Z3A.33 33 weeks gestation of pregnancy
CPT/HCPCS: 59025; 81001; 80307; J3490

== ENCOUNTER 2018-10-01 14:59 | Outpatient (CLI) | payer SELFPAY ==
[2018-10-01 15:50] LABS: BACTERIA (WET MOUNT) 3+ BACTERIA SEEN; RBCS (WET MOUNT) FEW RBCS SEEN; T.VAGINALIS (WET MOUNT) NO TRICHOMONAS SEEN; WBCS (WET MOUNT) 3+ WBCS SEEN; YEAST (WET MOUNT) NO YEAST SEEN
[2018-10-01 16:05] LABS: APPEARANCE,URINE CLEAR; BILIRUBIN,URINE NEGATIVE (NEGATIVE); COLOR,URINE YELLOW; GLUCOSE, URINE NEGATIVE (NEGATIVE); KETONES,URINE 20 mg/dL (NEGATIVE); LEUKOCYTE ESTERASE,URINE MODERATE (NEGATIVE); NITRITE,URINE NEGATIVE (NEGATIVE); PROTEIN,URINE NEGATIVE (NEGATIVE); URINE SPECIFIC GRAVITY 1.008
[2018-10-01 16:21] LABS: URINE AMPHETAMINES SCREEN NEGATIVE; URINE BARBITURATES SCREEN NEGATIVE; URINE BENZODIAZEPINES SCREEN NEGATIVE; URINE COCAINE SCREEN NEGATIVE; URINE METHADONE SCREEN NEGATIVE; URINE PHENCYCLIDINE SCREEN NEGATIVE
[2018-10-01 16:35] LABS: URINE MARIJUANA (THC) SCREEN UNCONFIRMED POSITIVE
[2018-10-01 17:37] LABS: CHLAM PCR NOT DETECTED (NOT DETECT); GON PCR NOT DETECTED (NOT DETECT)
--- NOTE | 2018-10-01 20:22 | RADIOLOGY REPORT (SQ) ---
EXAM DESCRIPTION: U/S PROFILE W/O STRESS COMPLETED DATE/TIME: 10/01/2018 7:26 pm REASON FOR STUDY: non-reactive NST COMPARISON: None. TECHNIQUE: Limited avina-scale realtime and static images of the fetus to measure specified parameter s. LIMITATIONS: None. FINDINGS: HEART RATE: 124 beats per minute. RODRIGUE: 8.2 cm. BREATHING MOVEMENT: 2 points. MOVEMENT: 0 points. POSTURE AND TONE: 0 points. QUALITATIVE RODRIGUE: 2 points. OTHER: Vertex presentation. IMPRESSION: BIOPHYSICAL PROFILE: 02/05. Trimester of : Third - 28 weeks to delivery COMMENT: BREATHING MOVEMENTS: 2 POINTS: PRESENT 0 POINTS: ABSENT MOTION: 2 POINTS: PRESENT 0 POINTS: ABSENT TONE: 2 POINTS: PRESENT 0 POINTS: ABSENT AMNIOTIC FLUID VOLUME: 2 POINTS: LARGEST POCKET GREATER THAN 2 CM DEPTH. 0 POINTS: NO POCKET OF 2 CM. TECHNICAL DOCUMENTATION: JOB ID: [id number] [employer]- All Rights Reserved Reading location - IP/workstation name: [email or web address]
== END 2018-10-01 19:22 | disposition home or self-care (01) ==
LOC: LC 14:59
PROVIDERS: ATTEND Obstetrics & Gynecology
PROC: 4A1HXCZ Monitoring of Products of Conception, Cardiac Rate, External Approach (ICD-10-PCS; principal; 2018-10-01)
DX: O36.8130 Decreased fetal movements, third trimester, not applicable or unspecified (principal); Z3A.37 37 weeks gestation of pregnancy
CPT/HCPCS: 87210; 81005; 80307; 87491; 87591; 76819; Q0114

== ENCOUNTER 2018-10-02 09:30 | Inpatient (IN) | payer SELFPAY ==
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
[2018-10-02] MEDS ORDERED: ACETAMINOPHEN WITH CODEINE #3 TABLET PO PRN (11:21)
[2018-10-02] MEDS ORDERED: DIPHENHYDRAMINE HCL 25 MG CAPSULE PO PRN (11:21)
[2018-10-02] MEDS ORDERED: DIBUCAINE 1% OINTMENT 28 GM TP PRN (11:21)
[2018-10-02] MEDS ORDERED: PROMETHAZINE HCL 25 MG SUPP.RECT PR PRN (11:21)
[2018-10-02] MEDS ORDERED: BENZOCAINE/MENTHOL AEROSOL SPRAY 56 ML TOP PRN (11:21)
[2018-10-02] MEDS ORDERED: ACETAMINOPHEN 650 MG SUPP.RECT PR PRN (11:21)
[2018-10-02] MEDS ORDERED: GLYCERIN/WITCH HAZEL LEAF 1 EACH MED..PAD TP PRN (11:21)
[2018-10-02] MEDS ORDERED: MAGNESIUM HYDROXIDE SUSP 30 ML UDCUP PO PRN (11:21)
[2018-10-02] MEDS ORDERED: NA PHOS,M-B/NA PHOS,DI-BA (ADULT) 133 ML ENEMA PR PRN (11:21)
[2018-10-02] MEDS ORDERED: PSEUDOEPHEDRINE HCL 30 MG TABLET PO PRN (11:21)
[2018-10-02] MEDS ORDERED: PROMETHAZINE HCL 25 MG TABLET PO PRN (11:21)
[2018-10-02] MEDS ORDERED: MEASLES,MUMPS&RUBELLA VACC/PF 0.5 ML VIAL SUBCUT PRN (11:21)
[2018-10-02] MEDS ORDERED: DIPH/PERTUSS(ACELL)/TETANUS VAC/PF 0.5 ML SYR (>=10YO) IM PRN (11:21)
[2018-10-02] MEDS ORDERED: PROMETHAZINE HCL INJ 25 MG/1 ML VIAL IV PRN (11:21)
[2018-10-02] MEDS ORDERED: OXYTOCIN/NORMAL SALINE 20 UNIT/1,000 ML RTUINJ IV PRN (11:21)
[2018-10-02] MEDS ORDERED: IBUPROFEN 800 MG TABLET ONE (12:05)
[2018-10-02] MEDS: IBUPROFEN 800 MG TABLET PO SCH ×2 (14:00→21:34)
--- NOTE | 2018-10-02 14:24 | Warning Signs in Babies ---
VOD Warning Signs Datetime Report Generated by [facility]: 10/02/2018 14:24 VOD#608 -Warning Signs in Babies: Viewed with Parent(s)/Family (08/07/2018 02:51:Eber Ballard RN)
--- NOTE | 2018-10-02 14:24 | Delivery Summary ---
Del Sum A-C Datetime Report Generated by CPN: 10/02/2018 14:24 DELIVERY PERSONNEL DELIVERY PERSONNEL: [id number] MATERNAL INFORMATION Delivery Anesthesia: None Medications After Delivery: Other-Please Comment Meds After Delivery Comment: NONE Maternal Complications: Other Complication Details: PT @ HOME @ 0739, ARRIVED TO L_D @ 1002 VIA EMS- ALL INFORMATION IS REPORTED BY PT. LABOR SUMMARY EDC: 10/21/2018 00:00 No. Babies in Womb: 1 Attempted: PT HOME Labor Anesthesia: None LABOR INFORMATION Reason for Induction: Not Applicable Oxytocin: N/A Group B Beta Strep: unknown Antibiotics # of Doses: 0 Steroids Given: None Reason Steroids Not Administered: Not Applicable MEMBRANES Membranes Rupture Method: Spontaneous Rupture of Membranes: 10/02/2018 07:39 Length of Rupture (hr): 0.00 VAGINAL DELIVERY Episiotomy: None Laceration #1: None Laceration Extension #1: N/A BABY A INFORMATION Infant Delivery Date/Time: 10/02/2018 07:39 Method of Delivery: Vaginal Born in Route : DEL @ HOME : Successful Forceps: N/A Vacuum Extraction: N/A Shoulder Dystocia : No PRESENTATION/POSITION BABY A Presentation: Cephalic PLACENTA INFORMATION BABY A Placenta Method of Delivery: Spontaneous Placenta Status: Delivered INFANT INFORMATION BABY A Gestational Age at Delivery: 37.2 Gestational Status: Early Term- 37- 38.6 Weeks Infant Outcome : Liveborn Infant Condition : Stable Sex: Female IDENTIFICATION BABY A Verification Date/Time: 10/02/2018 11:19 ID Band Number: [id number] Mother's Name Verified: Yes RN Verifying : T. Elio, RN and J. Field, RN WEIGHT/LENGTH BABY A Birthweight (gm): 2839 Infant Weight (lb): 6 Weight (oz): 4 Length (in): 19.50 Infant Length (cm): 49.53 ASSESSMENT BABY A Skin to Skin: Yes BABY B INFORMATION : N/A
[2018-10-02] MEDS: ACETAMINOPHEN WITH CODEINE #3 TABLET PO PRN (17:53)
[2018-10-02] MEDS: FERROUS SULFATE 325 MG TABLET PO SCH (17:53)
[2018-10-02] MEDS: DOCUSATE SODIUM 100 MG CAPSULE PO SCH (17:53)
[2018-10-02] MEDS ORDERED: FAMOTIDINE 20 MG TABLET PO SCH (22:00)
[2018-10-03] MEDS: IBUPROFEN 800 MG TABLET PO SCH ×3 (06:34→21:38)
[2018-10-03 07:34] LABS: HEMATOCRIT 28.5 % (36.0-47.0); HEMOGLOBIN 9.9 g/dL (12.0-15.5); MEAN CORPUSCULAR HEMOGLOBIN 30.9 pg (27.0-33.4); MEAN CORPUSCULAR HGB CONC 34.7 g/dL (32.0-36.0); MEAN CORPUSCULAR VOLUME 89 fl (80-97); PLATELET COUNT 216 10^3/uL (150-450); RED CELL DISTRIBUTION WIDTH 14.6 % (11.5-14.0); WHITE BLOOD COUNT 20.8 10^3/uL (4.0-10.5)
[2018-10-03] MEDS: DOCUSATE SODIUM 100 MG CAPSULE PO SCH ×2 (09:24→17:51)
[2018-10-03] MEDS: FERROUS SULFATE 325 MG TABLET PO SCH ×2 (09:24→17:51)
[2018-10-03] MEDS: PRENATAL VITAMIN W DHA CAPSULE PO SCH (09:24)
[2018-10-03] MEDS: SENNOSIDES/DOCUSATE 8.6-50 MG 1 EACH TABLET PO SCH (09:24)
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
[2018-10-03] MEDS: ACETAMINOPHEN WITH CODEINE #3 TABLET PO PRN (20:14)
[2018-10-04] MEDS: IBUPROFEN 800 MG TABLET PO SCH (05:13)
--- NOTE | 2018-10-04 08:24 | PDOC DELIVERY SUMMARY ---
Delivery Summary - Maternal Risk Factors: No Care, Previous , Other Ruptured Membranes: SROM Fluids: Clear - Delivery Support Person Present: Yes
[2018-10-04 08:42] VITALS: BP 105/70
[2018-10-04] MEDS: SENNOSIDES/DOCUSATE 8.6-50 MG 1 EACH TABLET PO SCH (09:17)
[2018-10-04] MEDS: DOCUSATE SODIUM 100 MG CAPSULE PO SCH (09:17)
[2018-10-04] MEDS: FERROUS SULFATE 325 MG TABLET PO SCH (09:17)
[2018-10-04] MEDS: PRENATAL VITAMIN W DHA CAPSULE PO SCH (09:17)
[2018-10-04] MEDS: ACETAMINOPHEN WITH CODEINE #3 TABLET PO PRN (09:17)
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
== END 2018-10-04 15:31 | disposition home or self-care (01) | DRG 776 ==
LOC: LC 09:30 → LR 10:02 → 2N 15:11
PROVIDERS: ADMIT Obstetrics & Gynecology; ATTEND Obstetrics & Gynecology
DX: O99.345 Other mental disorders complicating the puerperium (principal); O99.325 Drug use complicating the puerperium; O34.219 Maternal care for unspecified type scar from previous cesarean delivery; O90.81 Anemia of the puerperium; N85.8 Other specified noninflammatory disorders of uterus; F41.8 Other specified anxiety disorders; D64.9 Anemia, unspecified; F12.90 Cannabis use, unspecified, uncomplicated; F43.10 Post-traumatic stress disorder, unspecified; Z3A.37 37 weeks gestation of pregnancy
CPT/HCPCS: 36415; 85027; 86850; 86900; 86901; J3490